=== PATIENT | male | born 2000 | race Caucasian/White ===

== ENCOUNTER → 2019-04-04 14:25 | Outpatient (CLI) | payer BC, SELFPAY ==
--- NOTE | ~2019-04-04 | XR_ITS ---
EXAMINATION: XR hip LT 2V w AP pelvis DATE: 04/04/2019 14:49 INDICATION: Left hip pain. TECHNIQUE: An anteroposterior view of the pelvis and 2 views of left hip were obtained. COMPARISON: None. FINDINGS: Bone alignment is normal. No fracture. Joint spaces are well maintained. IMPRESSION: 1. Normal pelvis and left hip. Reviewed, dictated and finalized at location A. [employer]
== END ==
PROVIDERS: PCP Family Medicine; Visit Provider Physician Assistant Medical
DX: M25.552 Pain in left hip (principal)
CPT/HCPCS: 73502; 73521

== ENCOUNTER → 2023-03-28 12:13 | Outpatient (CLI) | payer OTHER, SELFPAY ==
--- NOTE | ~2023-03-28 | XR_ITS ---
XR shoulder LT min 2V DATE: 03/28/2023 12:28 INDICATION: Left shoulder pain, chronic TECHNIQUE: 4 views COMPARISON: None FINDINGS: No fracture or dislocation, periosteal reaction or bone destruction. Normal alignment at th e acromioclavicular and glenohumeral joints. No abnormal soft tissue calcification. IMPRESSION: Negative Reviewed, dictated and finalized at location B. CHECKER IMPRESSION: Negative
== END ==
PROVIDERS: PCP Family Medicine; Visit Provider Nurse Practitioner Family
DX: M25.512 Pain in left shoulder (principal)
CPT/HCPCS: 73030

== ENCOUNTER 2023-06-21 08:17 | Outpatient (CLI) | payer OTHER, SELFPAY ==
--- NOTE | ~2023-06-21 | MR_ITS ---
EXAMINATION: MR shoulder LT wo con DATE: 06/21/2023 09:04 INDICATION: Left shoulder pain. TECHNIQUE: Magnetic resonance imaging (MRI) of the left shoulder was performed without intravenous co ntrast. Sequences included axial PD-weighted FS FSE, coronal oblique PD-weighted FS FSE and T2-weight ed FS FSE, and sagittal oblique T2-weighted FS FSE and T1-weighted FSE. COMPARISON: Left shoulder radiographs 03/28/2023 FINDINGS: Coracoacromial arch: The acromion undersurface is curved in morphology (type II). The acromioclavicular joint is normal. T here is physiologic fluid in subacromial/subdeltoid bursa. Rotator cuff: Supraspinatus tendon is normal. There is mild infraspinatus tendinopathy. Teres minor tendon and subs capular tendon are normal. No tear. The rotator cuff muscle bellies are normal. Biceps tendon and glenoid labrum: Biceps tendon is in bicipital groove. Intra-articular biceps tendon is normal. There is a fracture of the posterior rim of glenoid from 8:00 to 10:00 with 2 mm displacement of the osteolabral fragment. Fluid: There is no glenohumeral joint effusion. Bones/cartilage: Glenoid cartilage is normal. Humeral head cartilage is normal. IMPRESSION: 1. Fracture of the posterior rim of glenoid from 8:00 to 10:00 with 2 mm displacement of the osteolab ral fragment. Reviewed, dictated and finalized at location A. IMPRESSION: 1. Fracture of the posterior rim of glenoid from 8:00 to 10:00 with 2 mm displa cement of the osteolabral fragment.
== END 2023-06-21 08:18 ==
PROVIDERS: PCP Family Medicine; Visit Provider Family Medicine
DX: S42.192A Fracture of other part of scapula, left shoulder, initial encounter for closed fracture (principal); M25.512 Pain in left shoulder
CPT/HCPCS: 73221

== ENCOUNTER 2024-07-25 13:30 | Outpatient (CLI) | payer OTHER, SELFPAY ==
[2024-07-25 19:25] LABS: Basophils Percent Auto 0.5 % (0.2-1.2); Eosinophils Absolute Auto 0.1 K/mm3 (0-0.3); Eosinophils Percent Auto 1.1 % (0-4.4); Hematocrit 48.3 % (42.0-52.0); Hemoglobin 16.1 g/dL (14.0-18.0); Immature Granulocyte Absolute 0.02 K/mm3 (0.00-0.031); Immature Granulocyte Percent A 0.4 % (0-0.5); Lymphocytes Absolute Auto 1.13 K/mm3 (0.9-3.2); Lymphocytes Percent Auto 20.5 % (18.3-44.2); Mean Corpuscular HGB Conc 33.3 g/dl (32-36); Mean Corpuscular Hemoglobin 29.1 pg (26-34); Mean Corpuscular Volume 87.2 fl (80-100); Mean Platelet Volume 10.4 fl (7.4-10.4); Monocytes Absolute Auto 0.5 K/mm3 (0.1-0.6); Monocytes Percent Auto 9.2 % (2.6-8.5); Neutrophils Absolute Auto 3.8 K/mm3 (1.3-6.7); Neutrophils Percent Auto 68.3 % (45.5-73.1); Platelet Count Result 277 k/mm3 (150-375); Red Blood Count 5.54 M/mm3 (4.6-6.20); Red Cell Distribution Width 12.9 % (11.5-14.5); White Blood Count 5.5 K/mm3 (4.5-10.0)
[2024-07-25 21:19] LABS: Alanine Aminotransferase 52 U/L (6-50); Albumin Level 4.9 g/dL (3.5-5.1); Alkaline Phosphatase 45 U/L (38-126); Anion Gap 10 mmol/L (4-12); Aspartate Amino Transferase 53 U/L (17-59); Bilirubin,Total 0.7 mg/dL (0.2-1.3); Blood Urea Nitrogen 15 mg/dL (9-20); Calcium 9.7 mg/dL (8.4-10.2); Carbon Dioxide 29 mmol/L (22-30); Chloride 100 mmol/L (98-107); Cholesterol 149 mg/dL (0-200); Estimated Glomerular Filt Rate > 60; Glucose 87 mg/dL (65-110); HDL Direct 49 mg/dL; Potassium 4.3 mmol/L (3.4-5.0); Sodium 139 mmol/L (137-145); Total Protein 7.8 g/dL (6.3-8.2); Triglycerides 39 mg/dL (<150)
[2024-07-25 21:30] LABS: LDL Cholesterol Direct 75 mg/dL
== END 2024-07-25 13:31 | disposition home or self-care (01) ==
LOC: ANHGOSHLAB 13:30
PROVIDERS: PCP Family Medicine; Visit Provider Nurse Practitioner Family
DX: R41.840 Attention and concentration deficit (principal); R59.9 Enlarged lymph nodes, unspecified; J30.9 Allergic rhinitis, unspecified; Z13.220 Encounter for screening for lipoid disorders
CPT/HCPCS: 36415; 80053; 80061; 84443; 85025